=== PATIENT | male | born 1995 | race Caucasian/White ===

== ENCOUNTER 2021-08-12 18:12 | Emergency (ER) | payer BC, OTHER ==
[2021-08-12 18:17] VITALS: TEMP 100
--- NOTE | 2021-08-12 18:32 | ED ---
General Adult HPI - General Chief complaint: Allergic Reaction Stated complaint: ALLERGIC REACTION Time Seen by Provider: 08/12/21 18:20 Source: patient Mode of arrival: ambulatory Limitations: no limitations - History of Present Illness Initial comments: Dictation was produced using [employer] dictation software. please excuse any grammatical, word or spelling errors. Chief Complaint: 25-year-old male presents with ALLERGIC reaction History of Present Illness: Is a 25-year-old male presents emergency department for ALLERGIC reaction. Patient started having urticaria to his extremities and face. He was at [employer] dinner when he started to feel like his symptoms were getting worse. Patient's had hives in the past however not sure what triggered it. A couple hours ago patient started noticing that his throat was feeling a little tight propped him to come to the emergency department. Patient denies any nausea. No shortness of breath. No abdominal pain. He has no known ALLERGIES. The ROS documented in this emergency department record has been reviewed and confirmed by me. Those systems with pertinent positive or negative responses have been documented in the HPI. All other systems are other negative and/or noncontributory. PHYSICAL EXAM: General Impression: Alert and oriented x3, not in acute distress, normal phone in, not drooling, no respiratory distress. HEENT: Normocephalic atraumatic, extra-ocular movements intact, pupils equal and reactive to light bilaterally, mucous membranes moist. Cardiovascular: Heart regular rate and rhythm Chest: Able to complete full sentences, no retractions, no tachypnea Abdomen: abdomen soft, non-tender, non-distended, no organomegaly Musculoskeletal: Pulses present and equal in all extremities, no peripheral edema Motor: no focal deficits noted Neurological: CN II-XII grossly intact, no focal motor or sensory deficits noted Skin: Urticarial rash to the arms back and chest Psych: Normal affect and mood ED course: 25-year-old male presents with ALLERGIC reaction. He does have upper airway involvement. He states that he does feel like there is some tightening in his throat. Not showing any signs of severe respiratory distress vital signs upon arrival shows heart rate of 125, temperature 100.0. Clinical presentation concerning for severe ALLERGIC reaction. Patient given epinephrine, Decadron, diphenhydramine and Pepcid. Patient reevaluated after EpiPen IM injection and Decadron diphenhydramine and Pepcid. States that his symptoms are significantly improved. Urticarial rash is resolved. Patient discharged given referral to steam trap man. Given prescription for epinephrine auto injector. Patient does not know if he is ALLERGIC to anything however he is told to monitor his exposures and to make a journal. - Related Data Home Medications Medication Instructions Recorded Confirmed Dextroamphetamine/Amphetamine 15 mg PO QAM 04/02/15 04/02/15 [Adderall] Previous Rx's Medication Instructions Recorded Hydrocodone/Acetaminophen [Vilas 1 each PO Q4HR PRN #20 tab 04/02/15 7.5-325] EPINEPHrine (Auto Inject) [Epipen] 0.3 mg IM ONCE PRN #2 each 08/12/21 Allergies Allergy/AdvReac Type Severity Reaction Status Date / Time No Known Allergies Allergy Verified 08/12/21 18:17 Review of Systems ROS Statement: Those systems with pertinent positive or pertinent negative responses have been documented in the HPI. ROS Other: All systems not noted in ROS Statement are negative. Past Medical History Past Medical History: No Reported History History of Any Multi-Drug Resistant Organisms: None Reported Past Surgical History: No Surgical Hx Reported Past Psychological History: No Psychological Hx Reported Smoking Status: Vaper Past Alcohol Use History: Occasional Past Drug Use History: None Reported General Exam Limitations: no limitations Course Vital Signs 08/12/21 18:14 Temperature 100.0 F H Pulse Rate 125 H Respiratory 19 Rate Blood Pressure 135/66 O2 Sat by Pulse 97 Oximetry Disposition Clinical Impression: Allergic reaction Disposition: HOME SELF-CARE Condition: Fair Instructions (If sedation given, give patient instructions): General Allergic Reaction (ED) Additional Instructions: You are given a referral to Dr. Ewing. He does some allergy testing in his office. You may find an head machinist outside of our system for testing as well. Prescriptions: EPINEPHrine (Auto Inject) [Epipen] 0.3 mg IM ONCE PRN #2 each PRN Reason: Anaphylaxis Is patient prescribed a controlled substance at d/c from ED?: No Referrals: Jim Ewing DO [Doctor of Osteopathic Medicine] - 1-2 days
[2021-08-12] MEDS: DEXAMETHASONE SOD PHOSPHATE 10 MG/ML 1 ML VIAL IV STA (18:40)
[2021-08-12] MEDS: diphenhydrAMINE 50 MG/ML 1 ML VIAL IVP STA (18:42)
[2021-08-12] MEDS: FAMOTIDINE 20 MG/2 ML VIAL IV STA (18:45)
[2021-08-12 19:41] VITALS: BP 116/66; PULSE 104; RESP 18
== END 2021-08-12 19:40 | disposition home or self-care (01) ==
LOC: EC 18:12
DX: T78.40XA Allergy, unspecified, initial encounter (principal); F17.290 Nicotine dependence, other tobacco product, uncomplicated; Z79.899 Other long term (current) drug therapy
CPT/HCPCS: 99283; 96374; 96375 ×2; 96372; J0171; J1200; J1100